=== PATIENT | female | born 1930 | race Caucasian/White ===

== ENCOUNTER 2018-09-02 07:56 | Emergency (ER) | payer MEDICARE ==
[~2018-09-02] VITALS: Ht 157.5 cm; Wt 95.3 kg
[~2018-09-02 07:56] MED LIST: ASPIRIN EC81 MG PO; CLOPIDOGREL75 MG PO; GABAPENTIN300 MG PO; LORAZEPAM1 MG PO; LOVASTATIN40 MG PO; METOPROLOL TART25 MG PO; MONTELUKAST SOD10 MG PO; PANTOPRAZOLE SO40 MG PO; XARELTO10 MG PO
--- OUTSIDE RECORDS SUMMARY | 2018-09-02 08:00 | XMS REPORT ---
Author Author [facility] Address Unknown Phone Unavailable Care Team Providers Care Party Coordinator Name Role Phone James TIJERINA Unavailable Unavailable Problems This patient has no known problems. Allergies, Adverse Reactions, Alerts This patient has no known allergies or adverse reactions. Medications This patient has no known medications. Results Test Description Test Time Test Comments Text Results Atomic Results Result Comments CT CHEST WO [place] [address] Patient Name: ADONAY BAIRD MR #: [id number] : 1930 Age/Sex: 86/F Req #: [id number] Adm Physician: Ordered by: JAMES TIJERINA MD Report #: [id number] Location: ER Room/Bed: Procedure: [id number] CT/CT CHEST WO Exam Date: 10/02/17 Exam Time: 0535 REPORT STATUS: Signed EXAM: CT CHEST WO DATE: 10/02/2017 4:46 AM Time stamp on exam: 0544 hours INDICATION: Shortness breath, cough COMPARISON: AP chest x-ray October 02, 2017 TECHNIQUE: Multidetector CT scanning of the chest was performed. Coronal and sagittal multiplanar reformations were obtained. Routine protocol performed. IV Contrast: None CTDIvol has been reviewed. It is below the limits set by the Radiation Protocol Committee (RPC). FINDINGS: LUNGS AND AIRWAYS: The trachea and major bronchi are unremarkable. Mild to moderate bibasilar and right middle lobe bronchiectasis with wall thickening and a few scattered subcentimeter ground glass opacities/nodules that are likely postinfectious/postinflammatory. PLEURA: No effusions or pneumothorax. HEART, MEDIASTINUM, VESSELS: Mild cardiac enlargement. Coronary artery, aortic and mitral valve calcifications. Trace pericardial effusion. Calcifications of the thoracic aorta without aneurysm. No mediastinal mass or lymphadenopathy. UPPER ABDOMEN: Moderate sized hiatal hernia. MUSCULOSKELETAL: No acute findings. IMPRESSION: Bibasilar traction bronchiectasis with nonspecific bronchial thickening. No consolidative pneumonia. Signed by: Dr. Payal Churchill M.D. on 10/02/2017 6:11 AM Dictated By: PAYAL CHURCHILL MD 0 Transcribed By: ALKA on 10/02/17610 COPY TO: JAMES TIJERINA MD CHEST SINGLE (PORTABLE) [place] [address] Patient Name: ADONAY BAIRD MR #: [id number] : 1930 Age/Sex: 86/F Req #: [id number] Adm Physician: Ordered by: JAMES TIJERINA MD Report #: [id number] Location: ER Room/Bed: Procedure: [id number] DX/CHEST SINGLE (PORTABLE) Exam Date: Exam Time: REPORT STATUS: Signed EXAM: CHEST SINGLE (PORTABLE), AP 1 view DATE: 10/02/2017 3:48 AM Time stamp on exam: 0415 hours INDICATION: Cough, sore throat, bodyaches COMPARISON: PA and lateral view of the chest August 01, 2015 FINDINGS: LINES/TUBES: None LUNGS: Questionable reticulonodular changes in the right lung base. PLEURA: No effusions or pneumothorax. HEART AND MEDIASTINUM: Enlargement of the cardiomediastinal silhouette and right hilum, which may be accentuated by lordotic view. BONES AND SOFT TISSUES: No acute findings. Hiatal hernia. IMPRESSION: Exam is limited by lordotic view, motion and soft tissue attenuation. An upright PA and lateral view of the chest is recommended to better evaluate the cardiomediastinal silhouette and lung bases. Signed by: Dr. Payal Churchill M.D. on 10/02/2017 4:40 AM Dictated By: PAYAL CHURCHILL MD 9 Transcribed By: ALKA on 10/02/17439 COPY TO: JAMES TIJERINA MD
[2018-09-02] MEDS ORDERED: KETOROLAC TROMETHAMINE 30 MG/ML VIAL IM STA (08:44)
[2018-09-02] MEDS ORDERED: DEXAMETHASONE SOD PHOS 10 MG/1 ML VIAL IM ONE (08:45)
[2018-09-02] MEDS ORDERED: HYDROCODONE/APAP 5MG-325MG TAB PO ONE (08:45)
[2018-09-02] MEDS ORDERED: ALBUTEROL/IPRATROPIUM 3 ML NEB NEB ONE (08:45)
--- NOTE | 2018-09-02 11:35 | Diagnostic Imaging Report ---
PROCEDURE: Frontal and lateral views of the chest. COMPARISON: CT Chest 10/02/2017. INDICATIONS: FALL FINDINGS: Lines/tubes: None. Lungs: Patchy and linear opacities are present in the right lower lung zone. Pleura: There is no pleural effusion or pneumothorax. Heart and mediastinum: Mild enlargement of the cardiomediastinal silhouette. Atherosclerotic aortic calcifications. Hiatal hernia is noted. Bones: No acute bony abnormality. No evidence of displaced fracture. IMPRESSION: No evidence of displaced fracture or pneumothorax. Patchy and linear opacities in the right lower lung, likely atelectasis. Dictated by: MANDY JEWELL M.D. on 09/02/2018 at 11:44 Electronically approved by: MANDY JEWELL M.D. on 09/02/2018 at 11:44
--- NOTE | 2018-09-02 11:41 | Diagnostic Imaging Report ---
PROCEDURE:L-SPINE COMPLETE COMPARISON:None. INDICATIONS:FALL FINDINGS: There is grade 1 anterolisthesis of L4 on L5. There is diffuse osteopenia. Mild age indeterminate vertebral body height loss at L3 and L5. No evidence of displaced fracture. Mild degenerative disc and facet degenerative changes. Extensive atherosclerotic aortic calcifications. CONCLUSION: Diffuse osteopenia with age indeterminate loss of vertebral body heights at L3 and L5. Dictated by: MANDY JEWELL M.D. on 09/02/2018 at 11:50 Electronically approved by: MANDY JEWELL M.D. on 09/02/2018 at 11:50
== END 2018-09-02 12:16 | disposition home or self-care (01) ==
LOC: ER 07:56
DX: M54.42 Lumbago with sciatica, left side (principal)
CPT/HCPCS: 71046; 72110; 94640; 99284; J1100; J1885

== ENCOUNTER 2018-09-16 15:51 | Emergency (ER) | payer MEDICARE ==
[~2018-09-16] VITALS: Ht 157.5 cm; Wt 95.3 kg
[2018-09-16] MEDS ORDERED: TRAMADOL HCL 50 MG TAB PO ONE (16:45)
--- NOTE | 2018-09-16 17:36 | Diagnostic Imaging Report ---
EXAM: KNEE RIGHT THREE VIEWS DATE: 09/16/2018 4:35 PM INDICATION: ^r/o fx fall COMPARISON: None FINDINGS: Moderate osteophytes present, most notably medial compartment with mild to moderate medial compartment narrowing. Small effusion present. Vascular calcifications and numerous surgical clips medial soft tissues. IMPRESSION: Chronic changes as above. Signed by: Dr. Hector Alvarez MD on 09/16/2018 5:33 PM
--- NOTE | 2018-09-16 17:42 | Diagnostic Imaging Report ---
EXAM: CT Pelvis/right hip WITHOUT contrast INDICATION: Fall COMPARISON: None. TECHNIQUE: Pelvis/right hip was scanned utilizing a multidetector helical scanner without the use of IV contrast. Coronal and sagittal reformations were obtained. IV CONTRAST: None COMPLICATIONS: None RADIATION DOSE: Total DLP: 347 mGy*cm Estimated effective dose: (DLP x 0.015 x size factor) mSv CTDIvol has been reviewed. It is below the limits set by the Radiation Protocol Committee (RPC). Appropriate CT dose reduction techniques were utilized. FINDINGS: Bladder: Unremarkable. Uterus/adnexa: Within limitations of nonenhanced exam, grossly unremarkable. Other: No pelvic free fluid or adenopathy. Colon: Moderate diverticulosis sigmoid colon without evidence of diverticulitis. Bones: Degenerative changes lower lumbar spine, SI joints, pubic symphysis, and hips. Within limits of demineralization, no definite fracture. IMPRESSION: 1. No definite fracture within limits of demineralization. MRI could be obtained for further evaluation if indicated. Signed by: Dr. Hector Alvarez MD on 09/16/2018 5:39 PM
--- NOTE | 2018-09-16 17:44 | Diagnostic Imaging Report ---
EXAM: CT HIP RIGHT WO DATE: 09/16/2018 4:35 PM INDICATION: ^r/o fx fall COMPARISON: None FINDINGS: See CT pelvis. IMPRESSION: As above. Signed by: Dr. Hector Alvarez MD on 09/16/2018 5:40 PM
--- NOTE | 2018-09-16 19:58 | Diagnostic Imaging Report ---
Exam: Head CT without contrast History: 87-year-old female with fall and weakness Comparison studies: None Technique: Axial images were obtained from the skull base to the vertex. Coronal and sagittal reconstructions obtained from the axial data. Dose modulation, iterative reconstruction, and/or weight based adjustment of the mA/kV was utilized to reduce the radiation dose to as low as reasonably achievable. Findings: Scalp/skull: No abnormalities. No fractures, blastic or lytic lesions. Brain sulci: Mildly prominent. Ventricles: Mild compensatory dilatation. No hydrocephalus. Extra-axial spaces: No masses. No fluid collections. Parenchyma: Subtle hypodensities in the supratentorial white matter are small vessel ischemic changes. No masses, hemorrhage, acute or chronic cortical vascular insults. Sellar/suprasellar region: No abnormalities Craniocervical junction: Patent foramen magnum. No Chiari one malformation. Incidental: * Coarse atherosclerotic calcifications in the carotid siphons and right vertebral artery * Bilateral cataract surgery. * Mild right cerebellar tonsillar ectopia. IMPRESSION: No acute abnormalities. Chronic findings: Mild generalized volume loss. Mild supratentorial white matter vessel ischemic changes Preliminary report dictated by Dr. Jennifer Doyle, Neuroradiology Fellow. A final report by the attending radiologist will follow. Signed by: Dr. Ebenezer Yi M.D. on 09/16/2018 7:54 PM
[2018-09-16] MEDS ORDERED: ULTRAM50 MG PO (20:25)
[2018-09-16 20:26] VITALS: BP 152/98
== END 2018-09-16 20:37 | disposition home or self-care (01) ==
LOC: ER 15:51
DX: M79.651 Pain in right thigh (principal); M25.551 Pain in right hip; R53.1 Weakness; R26.2 Difficulty in walking, not elsewhere classified; W18.39XA Other fall on same level, initial encounter; Y92.008 Other place in unspecified non-institutional (private) residence as the place of occurrence of the external cause; F41.9 Anxiety disorder, unspecified; F32.9 Major depressive disorder, single episode, unspecified
CPT/HCPCS: 70450; 72192; 99284

== ENCOUNTER 2018-09-24 09:17 | Inpatient (IN) | payer MEDICARE ==
[~2018-09-24] VITALS: Ht 160 cm; Wt 92.7 kg
[~2018-09-24 09:17] MED LIST changes: +ULTRAM50 MG PO
--- NOTE | 2018-09-24 14:34 | Diagnostic Imaging Report ---
MRI SPINE LUMBAR WO HISTORY: Right leg pain, hip pain COMPARISON: Pelvis CT 09/16/2018, lumbar spine radiographs 09/02/2018 TECHNIQUE: Sagittal T1, sagittal T2, sagittal STIR, axial T2, coronal T2, and axial proton density weighted images of the lumbar spine were obtained without contrast. Motion artifacts obscure some details. DISCUSSION: Number of non-rib bearing lumbar vertebral bodies: 5. Alignment: Normal lordosis. No scoliosis. Vertebrae: Moderate to severe L3 vertebral compression fracture is associated with vertebral marrow T1 hypointensity and STIR hyperintensity. There is near-complete loss of vertebral body height centrally. The marrow signal abnormality extends into the bilateral pedicles. Fracture retropulsion along the superior endplate causes severe canal stenosis at L2-L3 (along with ligamentum flavum thickening). The cauda equina is compressed at this level. Adjacent psoas muscle edema is present, left greater than right. No definite additional vertebral compression deformity is seen. A few scattered nodular T1 hyperintense vertebral body lesions are likely hemangiomas. Conus medullaris: Normal, ends at approximately L1. Cauda equina: No gross masses or arachnoiditis. Posterior paraspinal muscles: Well preserved. Bilateral lower lumbar paraspinal muscle edema is present. Soft tissues: Distended bladder is partially visualized. Underlying mild to moderate multilevel disc degeneration is present. There may be an annular fissure at L5-S1. T12-L1: Disc bulge without significant canal or foraminal stenosis. L1-L2: Disc bulge without significant canal or foraminal stenosis. L2-L3: Severe canal stenosis as described above. Moderate to severe right and severe left foraminal stenoses due to disc bulge and facet arthrosis. L3-L4: Mild canal stenosis due to disc bulge and ligamentum flavum thickening. Mild to moderate bilateral foraminal stenoses due to disc bulge and facet arthrosis. L4-L5: Grade 1 anterolisthesis of L4 on L5 due to prominent bilateral L4-L5 facet arthrosis. Small bilateral facet effusions are present with small bilateral paraspinal synovial cysts. Moderate canal stenosis due to uncovered disc bulge and ligamentum flavum thickening. Mild to moderate bilateral foraminal stenoses due to uncovered disc bulge and facet arthrosis. L5-S1: Moderate right and mild to moderate left foraminal stenoses due to disc bulge and facet arthrosis. No significant canal stenosis. IMPRESSION: 1. Acute moderate to severe L3 vertebral compression fracture. Fracture retropulsion along the superior endplate causes severe L2-L3 canal stenosis. The cauda equina is compressed at this level. This was discussed with Dr. Marquez at 2:21 PM on 09/24/2018. 2. Underlying mild to moderate multilevel disc degeneration. 3. Grade 1 anterolisthesis of L4 on L5 due to prominent bilateral L4-L5 facet arthrosis. 4. Moderate degenerative canal stenosis at L4-L5. 5. Multilevel degenerative foraminal stenoses - moderate to severe right and severe left at L2-L3. Signed by: Dr. Jose Villegas M.D. on 09/24/2018 2:31 PM
[2018-09-24] MEDS: METHYLPREDNISOLONE SOD SUCC 125 MG/2ML VIAL IV SCH ×2 (16:12→23:15)
[2018-09-24] MEDS ORDERED: ONDANSETRON HCL INJ 2 MG/ML VIAL IV PRN (16:45)
[2018-09-24] MEDS: HYDROMORPHONE 2MG/ML 2 MG/ML ML IV PRN ×2 (16:51→21:38)
[2018-09-24 18:13] VITALS: BP 158/125
[2018-09-24 20:00] VITALS: BP 134/91
[2018-09-24 20:15] VITALS: BP 134/91
[2018-09-24] MEDS ORDERED: GABAPENTIN 300 MG CAP PO ONE (23:30)
[2018-09-24] MEDS ORDERED: LORAZEPAM 1 MG TAB PO ONE (23:30)
[2018-09-25] VITALS (7 sets, daily range): BP systolic 118–140; BP diastolic 63–83
[2018-09-25] MEDS: METHYLPREDNISOLONE SOD SUCC 125 MG/2ML VIAL IV SCH ×3 (06:16→22:38)
[2018-09-25] MEDS: HYDROMORPHONE 2MG/ML 2 MG/ML ML IV PRN ×2 (06:44→22:40)
[2018-09-25] MEDS: METOPROLOL TARTRATE 25 MG TAB PO SCH ×3 (08:21→17:12)
[2018-09-25] MEDS: LORAZEPAM 1 MG TAB PO SCH ×2 (08:21→17:11)
[2018-09-25] MEDS: GABAPENTIN 300 MG CAP PO SCH ×2 (08:21→17:11)
[2018-09-25] MEDS: PANTOPRAZOLE SOD 40 MG TABEC PO SCH (08:24)
[2018-09-25 08:46] LABS: BASOPHILS % 0.1 % (0.0-1.0); HEMATOCRIT 46.6 % (34.2-44.1); LYMPHOCYTES # (AUTO) 0.8 (1.0-3.2); MEAN CORPUSCULAR HEMOGLOBIN 32.6 pg (28-32); MEAN CORPUSCULAR HGB CONC 34.3 g/dL (31-35); MEAN CORPUSCULAR VOLUME 94.9 fL (81-99); MONOCYTES # (AUTO) 0.1 (0.2-0.8); MONOCYTES % 0.6 % (4.4-11.3); NEUTROPHILS # (AUTO) 8.8 (2.1-6.9); NEUTROPHILS % 90.6 % (38.7-80.0); PLATELET COUNT 244 x10e3/uL (140-360); RED BLOOD COUNT 4.91 x10e6/uL (3.6-5.1); RED CELL DISTRIBUTION WIDTH 13.9 % (11.7-14.4)
[2018-09-25] MEDS ORDERED: SIMVASTATIN 20 MG TAB PO SCH (09:00)
[2018-09-25 09:03] LABS: ANION GAP 15.8 mmol/L (8-16); CALCIUM 9.8 mg/dL (8.4-10.2); CHOL/HDL RATIO 3.8 (3.0-3.6); CREATININE, SERUM 1.04 mg/dL (0.57-1.11); MAGNESIUM 2.3 MG/DL (1.3-2.1); POTASSIUM 4.8 mmol/L (3.5-5.1)
[2018-09-25 09:23] LABS: THYROID STIMULATING HORMONE 0.595 uIU/mL (0.350-4.940)
[2018-09-25 10:14] LABS: CLARITY,URINE CLEAR (CLEAR); COLOR,URINE YELLOW (YELLOW); KETONES,URINE NEGATIVE (NEGATIVE); NITRITE,URINE NEGATIVE (NEGATIVE); PROTEIN,URINE DIPSTICK NEGATIVE (NEGATIVE); URINE UROBILINOGEN 0.2 mg/dL (0.2 - 1)
[2018-09-25 10:15] LABS: BILIRUBIN,URINE NEGATIVE (NEGATIVE); LEUKOCYTE ESTERASE ,URINE TRACE (NEGATIVE)
[2018-09-25 11:07] LABS: BACTERIA,URINE FEW /HPF; EPITHELIAL CELLS,URINE MODERATE /LPF
[2018-09-25] MEDS: MONTELUKAST SODIUM 10 MG TAB PO SCH (21:50)
[2018-09-25] MEDS: SIMVASTATIN 40 MG TAB PO SCH (21:50)
--- NOTE | 2018-09-25 22:52 | History and Physical ---
PRIMARY CARE PHYSICIAN: Dr. Morejon. CHIEF COMPLAINT: Back pain. HISTORY OF PRESENT ILLNESS: This is an 87-year-old woman with a history of recurrent multiple falls, now developing lower back pain which is severe, therefore, came to the hospital. Imaging showed acute lumbar compression fracture and other findings. Patient was admitted for further evaluation and management and neurosurgery consulted. PAST MEDICAL HISTORY: Atrial fibrillation, hyperlipidemia, and peripheral arterial disease. PAST SURGICAL HISTORY: Cataract surgery and right leg bypass surgery for aneurysm in 2002. ALLERGIES: PER ELECTRONIC MEDICAL RECORD. FAMILY/SOCIAL HISTORY: Patient is single. She has 2 children. No alcohol, illicits or cigarettes. MEDICATIONS: Per electronic medical record. REVIEW OF SYSTEMS: Denies any dizziness or chest pain. No nausea, vomiting, diarrhea, headache, vision changes, or leg pain. PHYSICAL EXAMINATION VITAL SIGNS: Reviewed. GENERAL: A tired-appearing woman, resting in bed. HEENT: Anicteric. CARDIOVASCULAR: She has irregular heart rhythm. LUNGS: Moderate breath sounds. ABDOMEN: Soft, nontender, and nondistended. BACK: She has a nontender enlargement in the mid lumbar region. EXTREMITIES: No edema or calf tenderness. NEUROLOGIC: Alert and oriented times 3, moving all extremities. SKIN: Dry. PSYCHIATRIC: Normal affect. LABS: Reviewed. MEDICATIONS: Reviewed. ASSESSMENT: This is an 87-year-old woman with; 1. Acute lumbar L3 compression fracture. 2. Cauda equina compression. 3. Degenerative disk disease. 4. Lumbar foraminal stenosis. 5. Hyperlipidemia. 6. Severe obesity with body mass index of 36.2 with hypertension. 7. Atrial fibrillation. 8. Hyperlipidemia. 9. Peripheral arterial disease. PLAN 1. Neurosurgery consulted. 2. Continue steroid treatment. 3. Continue gabapentin and Dilaudid. 4. Continue simvastatin. 5. Use PPI and SCD for prophylaxis. DISPOSITION: Possibly transfer to [facility] for surgical management. and I discussed this with the patient and daughter. I have also discussed with the daughter who agrees to transition to [place]. Further discussion may be required. Patient is requesting now for consultation. Job#: [id number] VAS
[2018-09-26] VITALS (7 sets, daily range): BP systolic 144–176; BP diastolic 73–91
[2018-09-26] MEDS: METHYLPREDNISOLONE SOD SUCC 125 MG/2ML VIAL IV SCH ×3 (06:20→21:38)
[2018-09-26] MEDS: PANTOPRAZOLE SOD 40 MG TABEC PO SCH (09:01)
[2018-09-26] MEDS: LORAZEPAM 1 MG TAB PO SCH ×2 (09:01→21:38)
[2018-09-26] MEDS: METOPROLOL TARTRATE 25 MG TAB PO SCH ×3 (09:01→17:06)
[2018-09-26] MEDS: GABAPENTIN 300 MG CAP PO SCH ×2 (09:01→17:06)
[2018-09-26] MEDS: CEFTRIAXONE SOD 1 GM VIAL IV SCH (17:06)
[2018-09-26] MEDS: MONTELUKAST SODIUM 10 MG TAB PO SCH (21:38)
[2018-09-26] MEDS: SIMVASTATIN 40 MG TAB PO SCH (21:38)
[2018-09-26] MEDS: HYDROMORPHONE 2MG/ML 2 MG/ML ML IV PRN (21:46)
[2018-09-27] MEDS: METHYLPREDNISOLONE SOD SUCC 125 MG/2ML VIAL IV SCH ×2 (05:30→14:51)
[2018-09-27 07:39] VITALS: BP 179/96
[2018-09-27 08:22] VITALS: BP 179/96
[2018-09-27] MEDS: LORAZEPAM 1 MG TAB PO SCH (08:30)
[2018-09-27] MEDS: GABAPENTIN 300 MG CAP PO SCH ×2 (08:30→16:50)
[2018-09-27] MEDS: METOPROLOL TARTRATE 25 MG TAB PO SCH ×3 (08:30→16:50)
[2018-09-27] MEDS: PANTOPRAZOLE SOD 40 MG TABEC PO SCH (08:30)
[2018-09-27 12:26] VITALS: BP 190/92
[2018-09-27] MEDS: CEFTRIAXONE SOD 1 GM VIAL IV SCH (14:51)
[2018-09-27] MEDS: HYDROMORPHONE 2MG/ML 2 MG/ML ML IV PRN (17:24)
[2018-09-27 17:40] VITALS: BP 178/91
== END 2018-09-27 17:30 | disposition short-term general hospital (02) | DRG 552 ==
LOC: ER 09:17 → ERHOLD 15:15 → MED/SURG2 18:05 → OBSVTOIN 09-27 15:07
PROVIDERS: ADMIT Internal Medicine; ATTEND Internal Medicine
DX: S32.030A Wedge compression fracture of third lumbar vertebra, initial encounter for closed fracture (principal); G83.4 Cauda equina syndrome; W19.XXXA Unspecified fall, initial encounter; Z91.81 History of falling; Y92.9 Unspecified place or not applicable; E66.01 Morbid (severe) obesity due to excess calories; Z68.36 Body mass index [BMI] 36.0-36.9, adult; E78.5 Hyperlipidemia, unspecified; M51.36 Other intervertebral disc degeneration, lumbar region; I10 Essential (primary) hypertension; I48.91 Unspecified atrial fibrillation; Z79.01 Long term (current) use of anticoagulants; I73.9 Peripheral vascular disease, unspecified; M43.18 Spondylolisthesis, sacral and sacrococcygeal region; M79.604 Pain in right leg; M51.35 Other intervertebral disc degeneration, thoracolumbar region
CPT/HCPCS: 36415; 72148; 80048; 80061; 81001; 83036; 83735; 84443; 85025; 99284; G0378; J0696; J2405; J2930